=== PATIENT | female | born 1950 | race Caucasian/White ===

== ENCOUNTER 2017-01-05 09:15 | Day surgery (SDC) | payer MEDICARE, MEDICAID ==
[~2017-01-05] VITALS: Ht 157.5 cm; Wt 83.9 kg
--- NOTE | 2017-01-05 07:25 | PCM.HPANE ---
Patient Data Surgeon Admitting Provider: Attending Provider:Delfino Chowdhury MD Primary Care Physician:Anibal Fleming DO Other Provider:Farshad Tian Anesthesia Reason for Visit History Of Colon Polyps Ht/WT & BMI Body Mass Index Allergies Coded Allergies: codeine (Verified Allergy, Severe, hallucinate, 01/04/17) baclofen (Verified Allergy, Unknown, 01/04/17) Past Anesthesia History Anesthesia History: Denies:: Abnormal Airway, Anesthesia Reactions, Difficult Intubation, Fam Anesthesia Reaction, Fam Malignant Hypertherm, Malignant Hyperthermia Diabetes History Hx Diabetes?: No MRSA MRSA: No Medications Hypertension Medication: No Home Meds Incl Beta Efrem: No Reported Medications Sumatriptan (Imitrex)25 Mg Aryvnw53 Mg PO 01/04/17 Bacillus Coagulans (Digestive Advantage)250 Million Cell Tab.chew1 Each PO 01/04/17 Atorvastatin (Lipitor)80 Mg Hjkxam33 Mg PO DAILY Ref 0 01/04/17 Omeprazole Magnesium (Omeprazole)20 Mg Capsule.dr20 Mg PO BID 30 Days Ref 0 12/05/13 Cyclobenzaprine N Tablet5 Mg PO TID PRN For Spasm 12/05/13 Hydrocodone Bit/Acetaminophen (Hydrocodon-Acetaminophen 5-500)1 Each Tablet1 Each PO BID PRN For Pain Ref 0 12/05/13 Aspirin (Aspir 81)81 Mg Tablet.dr81 Mg PO DAILY Ref 0 12/05/13 Discontinued Reported Medications Hydrochlorothiazide 25 Mg Qzbmzv02 Mg PO DAILY 30 Days Ref 0 12/05/13 History History of ENT Problems?: No HEENT History: Positive for:: Sinus Problem Denies:: Abnormal Airway Cataracts Difficult Intubation Dysphagia Hearing Problem Denture Type: Full- Upper Full- Lower Teeth Condition: No Teeth Hx of Heart Problems?: Yes Cardiovascular History: Positive for:: Hypertension Denies:: AICD Atrial Fibrillation Cardiac Surgery Chest Pain Congestive Heart Failure Edema Heart Murmur Irregular Heartbeat Pacemaker Thrombophlebitis Valvular Heart Disease Hx of Respiratory Problem?: Yes Respiratory History: Positive for:: Pneumonia Denies:: Asthma COPD Chest Surgery Cough Dyspnea Emphysema Hemoptysis Tuberculosis Hx Neurologic Problems?: No Neurological History: Positive for:: Dementia Headaches (MIGRAINES SINCE 3 YEARS OLD) Denies:: Alzheimer's Disease CVA Parkinson's Disease Seizures Hx of GI Problems?: No Hx of Problems?: Yes Genitourinary History: Positive for:: Kidney Stones (LITHOTRIPSY) Urinary Tract Infection Female Hx: Denies:: Currently Hx Musculoskeletal Problems?: Yes Musculoskeletal History: Positive for:: Back Injury (BACK SURGERY FOR RUPTURED DISK) Denies:: Joint Replacement Musculoskeletal Trauma Hx of Psycho/Social Problems?: Yes Psycho Social History: Denies:: Anxiety Hx Depression Hx Surgeries?: Yes (/ tonsillectomy/cholecystectomy) Hx Any Other Health Problems?: Yes Other History: Positive for:: Thyroid Disease (TAKES LEVOXYL) Denies:: Cancer History Blood Transfusions: Positive for:: Blood Transfusions ( ) Denies:: Blood Transfuse Reaction Hx Diabetes: No Hx Alcohol Use: No Stop/Bang Risk Assessment Category Category 1A: Patient has history of documented sleep apnea, and HAS NOT received any narcotic, sedative or anesthesia administration during this stay. Category 1B: Patient has history of documented sleep apnea, and HAS received any narcotic , sedative or anesthesia administration during this stay Category 2: Patient has SUSPECTED Obstructive Sleep Apnea, and HAS received any narcotic , sedative or anesthesia administration during this stay. Category 3: Patient has SUSPECTED Obstructive Sleep Apnea and HAS NOT received narcotic, sedative or anesthesia administration during this stay. Category 4: Outpatient in Procedural Areas with known sleep apnea or who screen positive for High Risk via the STOP/BANG questionnaire. Exam Exam General Appearance: Alert, Oriented X3, Cooperative, No Acute Distress HEENT/AIRWAY: MP 2, Neck Movement (decreased extension), Mouth Opening (3fb) Lungs: Normal Air Movement Heart: Exam Unremarkable Plan Impression Patient chart reviewed, patient interviewed and anesthestic plan with risks, benefits, and alternatives discussed, and informed consent obtained. ASA Physical Status: ASA2 Mod Systemic Disease Anesthetic Plan: MAC Bene/Risks/Altern/Consents: Yes HP Complete Prior to Induction: Yes Rubens Alvarez MD Jan 05, 2017 07:25
[~2017-01-05 09:15] MED LIST: ASPI-628 PO; ATOR80TA PO; BACI1TAB2 PO; CYCL5TAB PO; HYDR1TAB69 PO; IMI25 PO; Lactated Ringer's 1,000 ML IV ONE; OMEP-113 PO
[2017-01-05] MEDS ORDERED: Propofol 10,000 mCg/mL 20 mL Inj ONE (09:16)
[2017-01-05 09:34] VITALS: BP 140/67; PULSE 69; RESP 16; O2SAT 98
[2017-01-05 10:58] VITALS: BP 143/70; PULSE 63; RESP 16; O2SAT 99
[2017-01-05 11:00] VITALS: BP 150/66; PULSE 65; RESP 16; O2SAT 96
[2017-01-05 11:22] VITALS: BP 116/65; PULSE 61; RESP 14; O2SAT 97
--- NOTE | 2017-01-05 11:28 | PCM.ANEP1 ---
Post Anesthesia PACU Phase 1 Assessment Vital Signs Vital Signs Date Time Temp Pulse Resp B/P Pulse Ox O2 Delivery O2 Flow Rate FiO2 01/05/17 11:22 61 14 116/65 97 Room Air 01/05/17 11:00 65 16 150/66 96 Room Air 01/05/17 10:58 63 16 143/70 99 Room Air 01/05/17 09:34 36.2 69 16 140/67 98 Room Air Anesthetic Administered: MAC Level of Alertness: Sleepy, easy to arouse PALACIO's with Equal Strength: Yes Pain: No Nausea or Vomiting: No CV Function & Hydration Stable: Yes Airway Device: Oxygen Delivery: Room Air Lungs: Normal Air Movement Dermatome Level: Full Sensation PACU Phase 2 Assessment Complications: No Follow up Care: No Patient Instructions Provided: N/A Rubens Alvarez MD Jan 05, 2017 11:28
--- NOTE | 2017-01-05 11:34 | ENDO ---
[address] [address] ENDOSCOPY PROCEDURE PATIENT: GUS ZUNIGA : 1950 MR#: [id number] ADMIT: 01/05/2017 JOB ID: [id number] DATE OF SERVICE: 01/05/2017 PREOPERATIVE DIAGNOSIS: Personal history of many adenomatous colonic polyps. POSTOPERATIVE DIAGNOSIS: Twelve adenomatous polyps. OPERATION: Colonoscopy to cecum with multiple polypectomies with snare and cautery, as well as cautery ablation of colorectal polyps. (Modifier-22 becuase of number of polyps removed) SURGEON: Delfino Chowdhury MD INDICATIONS: The patient is a 66-year-old female who has a personal history of multiple colonic polyps. She is here for followup colonoscopy. Informed consent was obtained. FINDINGS: She had a good prep. The scope was advanced to the cecum. The withdrawal time was 25 minutes and 2 seconds. A total of 12 polyps were identified. Four of the polyps were ablated. At least one could not be localized after being removed was a hot snare. There was one polyp in the cecum, one in the ascending colon, one in the transverse colon, eight in the sigmoid colon, and one in the rectum. Retroflexed views of the rectum were normal. DESCRIPTION OF PROCEDURE: The procedure and sedation plan was discussed with the patient and nursing staff, and a procedural time-out was held. Sedation was provided by Dr. Rubens Alvarez from Anesthesia. A digital rectal exam was performed. The Olympus PCF-H180AL video colonoscope was passed transanally, advanced to the cecum with clear identification of the cecum and the appendiceal orifice. As stated above, she had a total of 12 polyps, one in the cecum, one in the ascending colon, one in the transverse colon, eight in the sigmoid colon, and one in the rectum. Four of the sigmoid colon polyps were ablated. All others removed with a snare and cautery. The rectal polyp could not be found for retrieval. The rectal polyp was in the range of 4 mm. There was minimal bleeding. She tolerated the procedure well. No apparent complications. IMPRESSION: Twelve colorectal polyps. RECOMMENDATIONS: Repeat colonoscopy one year. DONN
--- NOTE | 2017-01-06 12:02 | PATH ---
SURGICAL PATHOLOGY Attending Physician:Kimber Frias CASE STATUS: Signed Out PATIENT NAME: GUS ZUNIGA PID: [id number] : 1950 DATE COLLECTED:01/05/2017 15:39 SPECIMEN: 1: Colon, Biopsy 2: Colon, Biopsy 3: Colon, Biopsy 4: Colon, Biopsy CLINICAL HISTORY: 1. CECAL POLYP X1 2. ASCENDING POLYP X1 3. TRANSVERSE POLYP X1 4. SIGMOID POLYP X4 FINAL DIAGNOSIS: 1.CECAL POLYP: TUBULAR ADENOMA INVOLVING ALL BIOPSY FRAGMENTS. 2.ASCENDING COLON POLYP: TUBULAR ADENOMA. 3.TRANSVERSE COLON POLYP: TUBULAR ADENOMA INVOLVING BOTH BIOPSY FRAGMENTS. 4.SIGMOID COLON POLYPS: TUBULAR ADENOMA INVOLVING THREE BIOPSY FRAGMENTS. HYPERPLASTIC POLYP INVOLVING SINGLE BIOPSY FRAGMENT. ICD10 D12.0 GROSS DESCRIPTION: The specimen is received in four formalin filled containers labeled with the patient's name. 1). The specimen is sublabeled "cecal" and consists of 3 tiny portions of tissue which aggregate to 0.2 x 0.2 x 0.2 CM. The specimen is entirely submitted in cassette 1A. 2). The specimen is sublabeled "ascending polyp" and consists of a 0.2 x 0.2 x 0.2 CM portion of tissue which is entirely submitted in cassette 2A. 3). The specimen is sublabeled "transverse polyp" and consists of 2 portions of tissue which aggregate to 0.4 x 0.4 x 0.3 CM. The specimen is entirely submitted in cassette 3A. 4). The specimen is sublabeled "sigmoid" and consists of 4 portions of tissue which aggregate to 0.6 x 0.6 x 0.4 CM. The specimen is entirely submitted in cassette 4A. 01/05/2017 [facility] MICRO DESCRIPTION: See diagnosis. ICD-9 CODES: CPT CODES: 1: 33943 2: 73362 3: 60784 4: 73792 Electronically Signed Out Tom Shea MD [facility] Pathology [facility] [address], [place] [address] Technical component performed at [facility], [address], [place], [address]
== END 2017-01-05 23:59 | disposition home or self-care (01) ==
LOC: END 09:15
PROVIDERS: ATTEND Surgery
DX: Z12.11 Encounter for screening for malignant neoplasm of colon (principal); Z86.010 Personal history of colon polyps; Z80.0 Family history of malignant neoplasm of digestive organs; D12.0 Benign neoplasm of cecum; D12.2 Benign neoplasm of ascending colon; D12.3 Benign neoplasm of transverse colon; D12.5 Benign neoplasm of sigmoid colon; K62.1 Rectal polyp; I10 Essential (primary) hypertension; K22.70 Barrett's esophagus without dysplasia; F41.8 Other specified anxiety disorders; F44.9 Dissociative and conversion disorder, unspecified; K21.9 Gastro-esophageal reflux disease without esophagitis; G40.909 Epilepsy, unspecified, not intractable, without status epilepticus; F17.210 Nicotine dependence, cigarettes, uncomplicated; Z90.710 Acquired absence of both cervix and uterus; Z79.82 Long term (current) use of aspirin
CPT/HCPCS: 45385; 88305; J2250; J7120

== ENCOUNTER 2017-04-25 05:44 | Emergency (ER) | payer MEDICARE, MEDICAID ==
[~2017-04-25] VITALS: Ht 157.5 cm; Wt 81.8 kg
[~2017-04-25 05:44] MED LIST changes: -Lactated Ringer's 1,000 ML IV ONE
[2017-04-25 05:50] VITALS: BP 137/97; PULSE 81; RESP 20; O2SAT 98
--- NOTE | 2017-04-25 06:28 | ED.REPORT ---
HPI-Extremity Problem Lower Date of Service Apr 25, 2017 ED Provider: Sameer Menjivar MD Patient is a 66 year old female with a hx of osteoarthritis who presents to the ED complaining of L 5th toe pain s/p mis-stepping off of her front porch and hearing a "pop" 4 days ago. She did not obtain any other injuries. She denies numbness, weakness, tingling, or any other symptoms. Pt has broken the same toe previously. Nursing Notes Stated Complaint: LEFT FOOT INJURY Chief Complaint: Extremity Trauma Nursing Notes Reviewed: Yes Allergies: Coded Allergies: codeine (Verified Allergy, Severe, hallucinate, 01/04/17) baclofen (Verified Allergy, Unknown, 01/04/17) Scheduled Aspirin (Aspir 81) 81 Mg Tablet.dr 81 MG PO DAILY Atorvastatin (Lipitor) 80 Mg Tablet 80 MG PO DAILY Omeprazole Magnesium (Omeprazole) 20 Mg Capsule.dr 20 MG PO BID Scheduled PRN Cyclobenzaprine (Cyclobenzaprine) N Tablet 5 MG PO TID PRN PRN For Spasm Hydrocodone Bit/Acetaminophen (Hydrocodon-Acetaminophen 5-500) 1 Each Tablet 1 EACH PO BID PRN PRN For Pain Miscellaneous Medications Bacillus Coagulans (Digestive Advantage) 250 Million Cell Tab.chew 1 EACH PO Sumatriptan (Imitrex) 25 Mg Tablet 25 MG PO General Time Seen by MD: 06:05 Chief Complaint Toe injury left 5 Hx Obtained From: Patient Arrived By: Walk-in Onset Occurred: 4 days ago Symptom Duration: Since onset Context: Occurred at: Home injury Location: : Toe left 5 Quality: Painful Severity: Current: Moderate Severity: Maximum: Moderate Pertinent Negative: Pt denies other symptoms Exacerbated by: Range of motion Immunizations: Unknown Similar Sx Previous: Yes Past Medical History Past Medical History Thyroid disease migraines IBS GERD Osteoarthritis Depression anxiety Past Surgical History csection, abd exploratory, tonsils, salvador, back surg Smoking History Current Every Day Smoker, Heavy Tobacco Smoker Ambulatory Status Independent Review of Systems Review of Systems Note: -tingling Musculoskeletal: Reports: Extremity pain Skin: Reports Bruising Neurologic: Denies: Numbness, Weakness Complete sys rev & neg: except as marked. Physical Exam Initial Vital Signs Vital Signs (First) Date Time Temp Pulse Resp B/P Pulse Ox O2 Delivery O2 Flow Rate FiO2 04/25/17 05:50 36.1 81 20 137/97 98 Room Air Initial VS: Reviewed, Vital signs abnormal Head / Eyes: Atraumatic, Normocephalic Neck: Full range of motion Respiratory: No respiratory distress Cardiovascular: Intact distal pulses Skin: Warm, Dry Neurologic: Alert, Oriented, Nonfocal Psychiatric: Mood/affect normal, Behavior normal, Normal thought content Lower Extremity / Pelvis / MS: No deformity, Neurologic intact, Vascular intact Ankle / Foot: Neurologic intact, Vascular intact cap refill nL deep bruise at base of 5th toe and tip of 4th toe DP pulses good no tenderness about the 5th metatarsal General/Constitutional: Awake, Alert, No acute distress Interpretation & Diagnostics X-Ray Interpretation Xray Interpretation: Fracture at the base of the L 5th proximal phalanx X-Ray Ordered: Foot left Interpretation / Wet Read by: Wet read ED physician Re-Eval/Medical Decision Re-Evaluation/Progress : Time of Eval: 06:54 Re-Evaluation/Progress Note: Discussed xray results and plan for immobilization. Discussed f/u and RTED precautions. Patient understands and agrees with plan. All questions addressed at this time. Counseled Regarding: Diagnosis, Lab results, Need for follow-up, When/why to return to ED Discharge & Departure Impression: Primary Impression: Fracture of toe of left foot Encounter type: initial encounter Toe: lesser toe Fracture type: closed Phalanx: proximal Fracture alignment: nondisplaced Qualified Code: S92.515A - Nondisplaced fracture of proximal phalanx of left lesser toe(s), initial encounter for closed fracture Disposition: Home Discharge Condition All VS Reviewed: Yes Condition: Stable Patient Instructions: Toe Fracture (ED) Additional Instructions: Thank you for entrusting us with your care. I believe you did fracture your little toe. Immobilizing your foot using a boot or other preferred means may have decrease pain. Ice the injury 2-3 times a day for up to 20 min at a time. Continue to take your normal pain medications as prescribed. Follow up with your primary doctor as needed. Return to the emergency department if you experience new numbness, weakness, tingling, increased swelling, or any other new or concerning symptoms. Referrals: Anibal Fleming DO (PCP) Scribe Attestation Portions of this note were transcribed by Donna Klein. I, Dr. Menjivar personally performed the history, physical exam and medical decision-making; I reviewed and confirmed the accuracy of the information in the transcribed note. Signed by: Deena Hannah, 04/25/17 copies to: Anibal Fleming Kirk H MD Apr 25, 2017 06:28 DONNA KLEIN Apr 25, 2017 06:50
--- NOTE | 2017-04-25 08:50 | DRSVH ---
PROCEDURE: X-RAY LEFT FOOT COMPLETE, MINIMUM THREE VIEWS ([id number]) INDICATIONS: toe pain, foot pain after stepping off porch wrong TECHNIQUE: 3 views of the foot were acquired. COMPARISON: None. FINDINGS: Bones: There is a mildly comminuted, intra-articular fracture seen involving the proximal phalanx of the 5th toe. No additional fractures are detected. No suspicious lytic or blastic lesions are seen. Soft tissues: No tibiotalar joint effusion. Achilles tendon appears normal. IMPRESSION: Intra-articular fracture of the proximal phalanx of the 5th toe. Note: No significant discrepancy from the preliminary report. Dictated by: Agustin Robert M.D. on 04/25/2017 at 8:47 Approved by: Agustin Robert M.D. on 04/25/2017 at 8:49
== END 2017-04-25 06:59 | disposition home or self-care (01) ==
LOC: SED 05:44
DX: S92.515A Nondisplaced fracture of proximal phalanx of left lesser toe(s), initial encounter for closed fracture (principal); X50.9XXA Other and unspecified overexertion or strenuous movements or postures, initial encounter; Y93.89 Activity, other specified; Y92.019 Unspecified place in single-family (private) house as the place of occurrence of the external cause; Y99.8 Other external cause status; G43.909 Migraine, unspecified, not intractable, without status migrainosus; K21.9 Gastro-esophageal reflux disease without esophagitis; E07.9 Disorder of thyroid, unspecified; F41.8 Other specified anxiety disorders; F17.200 Nicotine dependence, unspecified, uncomplicated; Z79.82 Long term (current) use of aspirin; Z88.5 Allergy status to narcotic agent; Z88.8 Allergy status to other drugs, medicaments and biological substances